=== PATIENT | female | born 1940 | race Caucasian/White ===

== ENCOUNTER 2016-09-29 14:42 | Inpatient (IN) | payer MEDICARE, OTHER, SELFPAY ==
[~2016-09-29 14:42] MED LIST: ASPIRIN (CHEWABLE) 81 MG TAB PO SCH
[2016-09-29] MEDS ORDERED: NS 1,000 ML IV ONE (15:10)
[2016-09-29] MEDS ORDERED: SODIUM CHLORIDE 0.9% 10 ML FLUSH FLUSH PRN (15:10)
[2016-09-29] MEDS ORDERED: ASPIRIN 325 MG TAB PO ONE (15:13)
[2016-09-29] MEDS ORDERED: Enoxaparin 1 mg per kg per dose SQ ONE (15:13)
[2016-09-29] MEDS ORDERED: NITROGLYCERINE 2 % OINTMENT PACK TOP ONE (15:13)
[2016-09-29 15:28] LABS: AUTOMATED BASOPHIL 0.5 % (0-2); AUTOMATED EOSINOPHIL 0.6 % (0-5); AUTOMATED LYMPH 19.7 % (17-44); AUTOMATED MONOCYTE 6.4 % (3-10); AUTOMATED NEUTROPHIL 72.8 % (45-76); MPV 8.5 fL (7.4-10.4)
--- NOTE | 2016-09-29 15:32 | DIRPT ---
CLINICAL DATA: Chest pain for 1 day. Shortness of breath, tachycardia, and nausea. EXAM: PORTABLE CHEST 1 VIEW COMPARISON: 08/17/2016 FINDINGS: The cardiac silhouette remains mildly enlarged. Telemetry leads overlie the chest. No airspace consolidation, edema, pleural effusion, or pneumothorax is identified. No acute osseous abnormality is seen. IMPRESSION: No active disease. Electronically Signed By: Hrarison Yates M.D. On: 09/29/2016 15:30
[2016-09-29 15:39] LABS: BLOOD UREA NITROGEN 35 MG/DL (7-17); CALCIUM 10.6 MG/DL (8.4-10.2); CALCULATED OSMOLALITY 278 MOs/Kg (270-290); CHLORIDE 101 mEq/L (98-107); GLUCOSE 210 MG/DL (70-99); SODIUM LEVEL 137 mEq/L (137-146); TOTAL PROTEIN 7.2 G/DL (6.3-8.2)
--- NOTE | 2016-09-29 15:42 | EDPRACDOC ---
- General Information Stated Complaint: PALPITATIONS Time Seen by Provider: 09/29/16 15:09 Information Source: Patient Mode of Arrival: Ambulance Home Medications: Home Medications Alendronate Sodium [Fosamax] 70 mg PO TH 09/29/16 Aspirin (Enteric Coated) [Ecotrin] 81 mg PO DAILY 09/29/16 Atenolol 100 mg PO DAILY 09/29/16 Cholecalciferol (Vitamin D3) [Vitamin D3] 1,000 unit PO DAILY 09/29/16 Gabapentin 600 mg PO BID 09/29/16 HydrALAZINE (Cardiovascular) [Apresoline] 50 mg PO BID 09/29/16 Insulin Glargine [Lantus Pen] 100 units SQ DAILY 09/29/16 Levothyroxine Sodium [Synthroid] 100 mcg PO DAILY 09/29/16 Losartan Potassium 100 mg PO DAILY 09/29/16 Magnesium Oxide [Magnesium] 500 mg PO DAILY 09/29/16 [place]-3 Fatty Acids/Fish Oil [Fish Oil 1,[address]] 2 cap PO BID Simvastatin [Zocor] 80 mg PO QHS 09/29/16 Torsemide 20 mg PO BID 09/29/16 Allergies/Adverse Reactions: Allergies Allergy/AdvReac Type Severity Reaction Status Date / Time clopidogrel bisulfate Allergy Intermediate See Verified 07/02/14 14:21 [From Plavix] Comments OBI Inhibitors AdvReac Cough Verified 09/29/16 15:33 glimepiride AdvReac See Verified 09/29/16 15:33 Comments metformin AdvReac Diarrhea Verified 09/29/16 15:33 pioglitazone [From Actos] AdvReac See Verified 09/29/16 15:33 Comments - History of Present Illness Onset: 99 HPI: HERE WITH CP AND SHOB; DR. GRAHAM SENT PT HERE FOR ADMISSION. ALSO NOTED TACHYCARDIA IN HER OFFICE. MULTIPLE RISK FACTORS AND STENT IN 2005 AND 2009. CP ON AND OFF SINCE 99; CALLED CARDS AND COULD NOT SEE; WENT TO PMD. I SPOKE WITH DR. GRAHAM. SHE GAVE NTG AND HAD RELIEF. NO DECONGESTANTS OR CAFFEINE. Chest Pain Location: Reports: Substernal Pain Radiation: Reports: None Symptoms Occur: Reports: Gradually Cardiac Risk Factors: Reports: Hypertension, Diabetes Cardiac History of: Reports: Stent PE Risk Factors: Reports: None Medications within 24 Hours: Reports: None Prehospital Care: Reports: None Pain Severity: Mild Pain Worsens With: Reports: Exertion Pain Improves With: Reports: Rest Associated Signs and Symptoms: Reports: Palpitations ED Past Medical History - History Reviewed Yes Nurses notes reviewed and agree except as marked - Patient Medical History Cardiac History: Reports: Hypertension, Congestive Heart Failure, Cardiac Catheterization, Hypercholesterolemia Psychological History: Denies: Depression Systemic History: Denies: Cancer Surgical History: Reports: Cholecystectomy, Cardiac Catheterization - Social Medical History Smoking Status: Never smoker EDM Review of Systems - Review of Systems ROS Negative Except as Marked: Yes All systems reviewed and were negative except as marked - Physical Exam Constitutional: Alert (Awake), No apparent distress Oriented to: Time, Person, Place Last recorded Vital Signs: Last Vital Signs Temp 98.1 F 09/29/16 14:42 Pulse 116 09/29/16 15:15 Resp 20 09/29/16 15:15 BP 152/66 09/29/16 15:15 Pulse Ox 91 09/29/16 15:15 Oxygen Pulse Oxygen Saturation 91 O2 Device Room Air Oxygen Flow Rate Fraction of Inspired Oxygen ( FIO2) - HEENT Head: Normal ( normocephalic) Eye Exam: Normal (PERRL, EOMI, Sclera white) Oropharynx: Normal (Pharynx:Moist without exudate,Gums-no swelling) ENT EAC: Normal TMJ: Normal Nose: No Symptoms Reported (septum midline) Neck: Normal (FROM, trachea at midline) - Respiratory/Cardiovascular Respiratory: Normal - CTA (BBS clear to auscultation without adventitious sounds ) Cardiovascular: Tachycardia - GI Auscultation: Normal (NABS) Palpation: Normal (Soft,No rebound or guarding, non distended) Tenderness: Non tender Matos's Sign: Negative - Musculoskeletal Back: Normal (Non-Tender) Extremities: Normal (Normal tone, Pulses 2+ No cyanosis or edema, FROM) - Integumentary Skin: Normal, Warm, Dry Lymphatics: Normal (no adenopathy) - Neurologic Memory Impaired: Normal Motor Function: Normal (Normal tone, Pulses 2+ No cyanosis or edema, FROM) Cranial Nerve: Normal (CN II-X11 intact sensation, strength 5/5) Cerebellar: Normal Mood Description: Normal Perception: Normal - Action Patient received Aspirin within last 24 hours?: Yes ASA given in the ED: Yes Patient received Beta Sandra within last 24hrs: Yes - Results 09/29/16 14:55 09/29/16 14:55 WBC 9.9 xk/uL (3.8-10.8) 09/29/16 14:55 RBC 4.62 xM/uL (4.20-5.40) 09/29/16 14:55 Hgb 13.9 g/dL (12.0-16.0) 09/29/16 14:55 Hct 40.6 % (36-47) 09/29/16 14:55 MCV 88 fL (81-99) 09/29/16 14:55 MCH 30.0 pg (27-32) 09/29/16 14:55 MCHC 34.1 g/dl (33-36) 09/29/16 14:55 RDW 13.5 % (11.5-14.5) 09/29/16 14:55 Plt Count 284 xk/uL (130-400) 09/29/16 14:55 MPV 8.5 fL (7.4-10.4) 09/29/16 14:55 Neut % (Auto) 72.8 % (45-76) 09/29/16 14:55 Lymph % (Auto) 19.7 % (17-44) 09/29/16 14:55 [place] % (Auto) 6.4 % (3-10) 09/29/16 14:55 Eos % (Auto) 0.6 % (0-5) 09/29/16 14:55 Baso % (Auto) 0.5 % (0-2) 09/29/16 14:55 Absolute Neuts (auto) 7.13 xk/uL (1.7-8.2) 09/29/16 14:55 Absolute Lymphs (auto) 1.88 xk/uL (0.65-4.75) 09/29/16 14:55 Lab Results 09/29/16 14:55 WBC 9.9 RBC 4.62 Hgb 13.9 Hct 40.6 MCV 88 MCH 30.0 MCHC 34.1 RDW 13.5 Plt Count 284 MPV 8.5 Neut % (Auto) 72.8 Lymph % (Auto) 19.7 [place] % (Auto) 6.4 Eos % (Auto) 0.6 Baso % (Auto) 0.5 Absolute Neuts (auto) 7.13 Absolute Lymphs (auto) 1.88 Laboratory Results - last 24 hr 09/29/16 14:55 WBC 9.9 RBC 4.62 Hgb 13.9 Hct 40.6 MCV 88 MCH 30.0 MCHC 34.1 RDW 13.5 Plt Count 284 MPV 8.5 Neut % (Auto) 72.8 Lymph % (Auto) 19.7 [place] % (Auto) 6.4 Eos % (Auto) 0.6 Baso % (Auto) 0.5 Absolute Neuts (auto) 7.13 Absolute Lymphs (auto) 1.88 Laboratory Results 09/29/16 14:55 - EKG EKG #1 [place]: Normal Rhythm: ST Block: None Hypertrophy: None ST: Normal - Departure Yes I personally saw and evaluated the patient. Disposition: Admit IP To This Hospital Condition: Good Final Diagnosis: ANGINA Referrals: Kristin Graham MD [Primary Care Provider] - One Week Decision to Admit Time: 16:46 (ROCHELLE) Decision to admit date: 09/29/16 Decision to admit: from ED
[2016-09-29] MEDS ORDERED: METOPROLOL TARTRATE 25 MG TAB PO ONE (15:45)
[2016-09-29 15:52] LABS: PARTIAL THROMB. TIME 23.9 SEC (22-35); PT-INR 1.1
[2016-09-29] MEDS ORDERED: ENOXAPARIN 100 MG PFS SQ ONE (16:00)
[2016-09-29] MEDS ORDERED: Pharmacy Review for Metformin - IV Contrast Given SCH (16:00)
--- NOTE | 2016-09-29 16:33 | DIRPT ---
CLINICAL DATA: Tachycardia. Chest pain. Nausea. EXAM: CT ANGIOGRAPHY CHEST WITH CONTRAST TECHNIQUE: Multidetector CT imaging of the chest was performed using the standard protocol during bolus administration of intravenous contrast. Multiplanar CT image reconstructions and MIPs were obtained to evaluate the vascular anatomy. CONTRAST: 80 cc Isovue 370 COMPARISON: 09/29/2016 FINDINGS: Body habitus and motion artifact mildly reduced diagnostic sensitivity. Mediastinum/Nodes: No filling defect is identified in the pulmonary arterial tree to suggest pulmonary embolus. No acute aortic findings. Coronary artery atherosclerosis. Mild cardiomegaly. Borderline distal esophageal wall thickening. No pathologic thoracic adenopathy. Lungs/Pleura: Mild scarring or subsegmental atelectasis in the apical posterior segment left upper lobe. Upper abdomen: Peripancreatic lymph node upper normal size at 9 mm, image 101 series 3. No significant upper abdominal abnormality observed. Musculoskeletal: Thoracic spondylosis. Review of the MIP images confirms the above findings. IMPRESSION: 1. No embolus or acute aortic findings identified. 2. Coronary artery atherosclerosis with mild cardiomegaly. 3. Borderline distal esophageal wall thickening, potentially from mild esophagitis. 4. Thoracic spondylosis. Electronically Signed By: Diego Butler M.D. On: 09/29/2016 16:31
--- NOTE | 2016-09-29 16:48 | HISTPHYS ---
- Chief Complaint PATIENT SENT FROM DR. GODOY OFFICE FOR TACHYCARDIA AND CHEST PAIN. PATIENT STATES INTERMITTENT TACHY. ONSET 89 THIS AM WHILE SLEEPING AND REOCCURRED WHILE CLEANING HOUSE. PATIENT C/O "THROBBING" SENSATION IN CHEST, NAUSEA WITHOUT VOMITING AND DYSPNEA - History of Present Illness HERE WITH CP AND SHOB; DR. GODOY SENT PT HERE FOR ADMISSION. ALSO NOTED TACHYCARDIA IN HER OFFICE. MULTIPLE RISK FACTORS AND STENT IN 2005 AND 2009. CP ON AND OFF SINCE 99; CALLED CARDS AND COULD NOT SEE; WENT TO PMD. Dr. Pierson SPOKE WITH DR. GODOY. SHE GAVE NTG AND HAD RELIEF. NO DECONGESTANTS OR CAFFEINE. Chest Pain Location: Reports: Substernal Pain Radiation: Reports: None Symptoms Occur: Reports: Gradually Cardiac Risk Factors: Reports: Hypertension, Diabetes Cardiac History of: Reports: Stent PE Risk Factors: Reports: None Medications within 24 Hours: Reports: None Prehospital Care: Reports: None Pain Severity: Mild Pain Worsens With: Reports: Exertion Pain Improves With: Reports: Rest Associated Signs and Symptoms: Reports: Palpitations Patient has had 2 stents placed in 2005 and 1 stent placed in 2009. She also had some recent problems with low blood pressures at home she was checking her blood pressure on her 's machine. His was fine but hers ran low 3 or 4 time she said she just felt weak during that period. It got better on its own. Cardiac risk factors diabetes type 2, hypercholesterolemia, hypertension, negative smoker negative tobacco negative family history. - Medical History Cardiac History: Reports: Hypertension, Congestive Heart Failure, Cardiac Catheterization, Hypercholesterolemia Respiratory History: Reports: No Significant History GI/ History: Reports: No Significant History Systemic History: Reports: Diabetes. Denies: Cancer Psychological History: Denies: Depression - Surgical History Reports: Cholecystectomy, Cardiac Catheterization - Medictions/Allergies Allergies clopidogrel bisulfate [From Plavix] Allergy (Intermediate, Verified 07/02/14 14: 21) See Comments SWELLING IN EARS, EYES AND MOUTH OBI Inhibitors Adverse Reaction (Verified 09/29/16 15:33) Cough glimepiride Adverse Reaction (Verified 09/29/16 15:33) See Comments HYPOGLYCEMIA metformin Adverse Reaction (Verified 09/29/16 15:33) Diarrhea pioglitazone [From Actos] Adverse Reaction (Verified 09/29/16 15:33) See Comments WEIGHT GAIN Current Medication List: Reviewed Home Medications Alendronate Sodium [Fosamax] 70 mg PO TH 09/29/16 Aspirin (Enteric Coated) [Ecotrin] 81 mg PO DAILY 09/29/16 Atenolol 100 mg PO DAILY 09/29/16 Cholecalciferol (Vitamin D3) [Vitamin D3] 1,000 unit PO DAILY 09/29/16 Gabapentin 600 mg PO BID 09/29/16 HydrALAZINE (Cardiovascular) [Apresoline] 50 mg PO BID 09/29/16 Insulin Glargine [Lantus Pen] 100 units SQ DAILY 09/29/16 Levothyroxine Sodium [Synthroid] 100 mcg PO DAILY 09/29/16 Losartan Potassium 100 mg PO DAILY 09/29/16 Magnesium Oxide [Magnesium] 500 mg PO DAILY 09/29/16 [place]-3 Fatty Acids/Fish Oil [Fish Oil 1,[address]] 2 cap PO BID Simvastatin [Zocor] 80 mg PO QHS 09/29/16 Torsemide 20 mg PO BID 09/29/16 - Family History Reports: Diabetes - Social History Travel Outside of [place] in the Last 3 Months?: No Lives: with Spouse Smoking Status: Never smoker Social History: Denies: Alcohol Use - Review of Systems Constitutional: No Symptoms Reported (No Fever, chills, wt loss/gain, diaphoresis,fatigue/malaise.) Eyes: No Symptoms Reported (No blurry vision, visual changes, eye pain, or eye redness.) Ears: No Symptoms Reported (No ear pain or discharge) Throat/Neck: No Symptoms Reported (No throat pain or swelling.No oropharyngeal lesions or erythema.) Respiratory: No Symptoms Reported (No cough, wheezing, or shortness of breath.) Cardiovascular: Chest Pain, Palpitations Gastrointestinal: Other (Significant amount of belching recently) Genitourinary: No Symptoms Reported (No dysuria or hematuria.) Neurological: No Symptoms Reported (No headache, dizziness, seizures, or focal weakness.) Integumentary: No Symptoms Reported (no rashes or lesions) Allergic/Immunologic: No Symptoms Reported (no rashes or lesions) Hematologic: No Symptoms Reported (No chronic anemia, bleeding, or easy bruising.), Other (Lymphatics- no lymph node swelling or pain.) Endocrine: No Symptoms Reported (No thyroid issues, polyuria, or polydipsia.) Psychiatric: No Symptoms Reported (Fully oriented, with normal and appropriate affect.) - Physical Exam Vital Signs: Initial Vitals Temperature 98.1 F 09/29/16 14:42 Pulse Rate 120 H 09/29/16 14:42 Respiratory Rate 20 09/29/16 14:42 Blood Pressure 167/73 09/29/16 14:42 Pulse Oxygen Saturation 93 09/29/16 14:42 Constitutional: Alert (Awake, Fully oriented. Normal and appropriate affect.Well appearing. Well nourished.), No apparent distress Oriented to: Time, Person, Place - HEENT Head: Normal (normocephalic, atraumatic.), Other (No cervical lymphadenopathy. No supraclavicular lymphadenopathy. Neck: No palpable mass, supple , trachea midline.) Eye: Normal (pupils equal, reactive to light, and round; EOMI, Sclera white) Oropharynx: Normal (Pharynx: Moist without exudate,Gums-no swelling, No oropharyngeal lesions or erythema, Mucous membranes are dry.) Nose: No Symptoms Reported (septum midline, Nares patent, without discharge or bleeding.) Respiratory: Normal - CTA (Clear to auscultation bilaterally. No wheezing, rales , rhonchi. Chest wall movements are symmetric. No use of accessory muscles to breathe.) Cardiovascular: Normal (RRR , Normal S1, S2. No murmurs, rubs, or gallops. PMI non-displaced. Carotids: no carotid bruits. No bradycardia or tachycardia. DP pulses 2+ bilaterally.) - GI Auscultation: Normal (normal active sounds) Palpation: Normal (Soft,non distended,nontender. No hepatosplenomegaly.) Tenderness: Non tender (No rebound or guarding) Matos's Sign: Negative - Musculoskeletal Back: Normal (Non-Tender) Extremities: Normal (Normal tone, DP pulses 2+ bilaterally, No cyanosis or edema bilaterally, FROM bilaterally.) - Integumentary Skin: Normal (Clean, dry, and intact. No rashes. No lesions.) Lymphatics: Normal (No cervical lymphadenopathy. No supraclavicular lymphadenopathy.) - Neurologic Memory Impaired: Normal Motor Function: Normal (Motor 5/5 throughout.Normal tone, Pulses 2+ No cyanosis or edema, FROM) Cranial Nerve: Normal (CN II-XII intact sensation, strength 5/5) Cerebellar: Normal (Babinski: toes downgoing bilaterally. Intact Finger to nose. Sensory grossly intact to light touch. Intact rapid alternating movements bilaterally. No pronator drift.) Mood Description: Normal (Fully oriented. Normal and appropriate affect.) Perception: Normal (Normal and appropriate affect.) - Focused CV Perfusion Exam Vital Signs: Last Vital Signs Temp 98.1 F 09/29/16 14:42 Pulse 112 09/29/16 16:32 Resp 18 09/29/16 16:32 BP 149/64 09/29/16 16:32 Pulse Ox 93 09/29/16 16:32 - Lab Results Laboratory Results - last 24 hr 09/29/16 09/29/16 09/29/16 14:55 14:55 14:55 WBC 9.9 RBC 4.62 Hgb 13.9 Hct 40.6 MCV 88 MCH 30.0 MCHC 34.1 RDW 13.5 Plt Count 284 MPV 8.5 Neut % (Auto) 72.8 Lymph % (Auto) 19.7 [place] % (Auto) 6.4 Eos % (Auto) 0.6 Baso % (Auto) 0.5 Absolute Neuts (auto) 7.13 Absolute Lymphs (auto) 1.88 PT 10.8 INR 1.1 APTT 23.9 Sodium 137 Potassium 4.2 Chloride 101 Carbon Dioxide 26 Anion Gap 14 BUN 35 H Creatinine 1.10 H Estimated GFR (MDRD) 49 L Glucose 210 H Calculated Osmolality 278 Calcium 10.6 H Total Bilirubin 0.6 AST 34 ALT 40 Alkaline Phosphatase 90 Troponin I 0.08 [id number] Pept 401 Total Protein 7.2 Albumin 4.0 - Diagnostic Findings CT ANGIOGRAPHY CHEST WITH CONTRAST TECHNIQUE: Multidetector CT imaging of the chest was performed using the standard protocol during bolus administration of intravenous contrast. Multiplanar CT image reconstructions and MIPs were obtained to evaluate the vascular anatomy. CONTRAST: 80 cc Isovue 370 COMPARISON: 09/29/2016 FINDINGS: Body habitus and motion artifact mildly reduced diagnostic sensitivity. Mediastinum/Nodes: No filling defect is identified in the pulmonary arterial tree to suggest pulmonary embolus. No acute aortic findings. Coronary artery atherosclerosis. Mild cardiomegaly. Borderline distal esophageal wall thickening. No pathologic thoracic adenopathy. Lungs/Pleura: Mild scarring or subsegmental atelectasis in the apical posterior segment left upper lobe. Upper abdomen: Peripancreatic lymph node upper normal size at 9 mm, image 101 series 3. No significant upper abdominal abnormality observed. Musculoskeletal: Thoracic spondylosis. Review of the MIP images confirms the above findings. IMPRESSION: 1. No embolus or acute aortic findings identified. 2. Coronary artery atherosclerosis with mild cardiomegaly. 3. Borderline distal esophageal wall thickening, potentially from mild esophagitis. 4. Thoracic spondylosis. Electronically Signed By: Diego Butler M.D. On: 09/29/2016 16:31 - EKG EKG #1 [place]: Normal Rhythm: ST Block: None Hypertrophy: None ST: Normal Personally viewed by me. - Assessment (1) Chest pain R07.9 - CHEST PAIN, UNSPECIFIED Acute Present on Admission: Yes Qualifiers: Chest pain type: chest pain due to myocardial ischemia Ischemic chest pain type: unstable angina pectoris Qualified Code(s): I20.0 - Unstable angina Patient will be observed in the chest Pain Center. Will check serial enzymes and EKGs. If negative will proceed to Lexiscan Cardiolite stress testing in a.m. patient cannot do exercise stress testing due to thoracic spondylosis (2) Palpitations R00.2 - PALPITATIONS Acute Present on Admission: Yes Patient states that her previous cardiac episodes did not involve palpitations. Her heart rate is quite elevated this time. (3) Coronary artery disease I25.10 - ATHSCL HEART DISEASE OF [place] CORONARY ARTERY W/O ANG PCTRS Acute Present on Admission: Yes Qualifiers: Coronary Disease-Associated Artery/Lesion type: [place] artery [place] vs. transplanted heart: [place] heart Associated angina: without angina Qualified Code(s): I25.10 - Atherosclerotic heart disease of [place] coronary artery without angina pectoris Patient without history of previous unstable angina. At this point she is having significant pain and with a known history of coronary disease will rule out myocardial infarction and check stress test. (4) Type 2 diabetes mellitus E11.9 - TYPE 2 DIABETES MELLITUS WITHOUT COMPLICATIONS Acute Present on Admission: Yes Qualifiers: Diabetes mellitus complication status: with circulatory complication Diabetes mellitus complication detail: with other circulatory complications Diabetic retinopathy severity: D Proliferative retinopathy type: P Diabetes mellitus macular edema: D Diabetes mellitus skilled nursing insulin use: with skilled nursing use Laterality: L Chronic kidney disease stage: C Qualified Code(s): E11.59 - Type 2 diabetes mellitus with other circulatory complications; Z79.4 - intermediate (current) use of insulin Continue home medications. Start sliding scale insulin coverage. (5) Hypertension I10 - ESSENTIAL (PRIMARY) HYPERTENSION Acute Present on Admission: Yes Qualifiers: Hypertension type: essential hypertension Qualified Code(s): I10 - Essential (primary) hypertension Blood pressure fairly well controlled today continue home medications. (6) Hypercholesterolemia E78.00 - PURE HYPERCHOLESTEROLEMIA, UNSPECIFIED Acute Present on Admission: Yes Continue home medications. - Plan Observation, rule out [place], stress test. Cardiology has been consulted will see patient in a.m.. Case Care Discussed with: Patient, Family, Nursing Staff Total Time: 55 minutes Critical Care: No Couseling Time (>50% in counseling/coordination): No
[2016-09-29] MEDS ORDERED: NITROGLYCERINE 0.4 MG TAB SL PRN (17:15)
[2016-09-29] MEDS ORDERED: Pharmacy Order Set Alert SCH (18:00)
[2016-09-29] MEDS ORDERED: GLARGINE INSULIN (LANTUS) 100 UNITS/ML PEN SQ SCH (18:00)
[2016-09-29 18:57] VITALS: BMI 37.6
[2016-09-29] MEDS ORDERED: SIMVASTATIN 80 MG TAB PO SCH (21:00)
[2016-09-29] MEDS ORDERED: OMEGA PO SCH (21:00)
[2016-09-29] MEDS ORDERED: [UNRECOGNIZED DRUG - OTHER] PO SCH (21:00)
[2016-09-29] MEDS ORDERED: Non-Formulary Medication ITEM (Gabapentin [Gabapentin] 600 MG) PO SCH (21:00)
[2016-09-29] MEDS ORDERED: FATTY ACIDS PO SCH (21:00)
[2016-09-29] MEDS ORDERED: FISH OIL PO SCH (21:00)
[2016-09-29] MEDS: OMEGA-3-ACID ETHYL ESTERS 1000 MG CAP PO SCH (22:38)
[2016-09-29] MEDS: GABAPENTIN 300 MG CAP PO SCH (22:38)
[2016-09-29] MEDS ORDERED: Vaccine Screening Complete SCH (23:00)
[2016-09-30] MEDS ORDERED: MORPHINE 2 MG/ML INJECTION IV PRN (02:05)
[2016-09-30] MEDS ORDERED: Enoxaparin 1 mg per kg per dose SQ SCH (03:00)
[2016-09-30] MEDS ORDERED: ENOXAPARIN 100 MG PFS SQ SCH (04:00)
[2016-09-30 04:46] LABS: LDL (calc.) 57.2 MG/DL (<100); VLDL (calc.) 61.8 MG/DL (5-40)
[2016-09-30] MEDS ORDERED: LEVOTHYROXINE 100 MCG (0.1 MG) TAB PO SCH (06:00)
[2016-09-30] MEDS ORDERED: PANTOPRAZOLE 40 MG TAB PO SCH (06:00)
--- NOTE | 2016-09-30 07:48 | PCM.CARDCO ---
Consultation Date: 09/30/16 Requesting Physician: Guerita Chavez Parts Salesperson: Jesus Byers Consult Reason: Chest Pain - History of Present Illness Known to our group, history of CAD with PCI taxis stent to right coronary artery 02/11/2000 stents and PCI an exact got big Xience stent to her LAD in October 2010 other problems include hypertensive heart disease with heart failure chronic diastolic heart failure hyperlipidemia and type 2 diabetes. She had trouble sleeping and to go over the counter p.m. medicines with sedating antihistamine and INR heart racing in the high 120s. This made her quite apprehensive short of breath and vague chest discomfort. She did not take nitroglycerin. The chest pain was not severe but was substernal and was tightness. The symptoms waxed and waned was seen in Dr. Graham is office her heart rate was still high was referred to the emergency room. He has had no recurrent symptoms with her troponins become positive. I met with the patient the review the diagnosis of non ST elevation NE and advised in view of her known coronary disease and multiple previous PCI she would be best served with direct referral to coronary arteriography. Risk options and benefits were detailed will check her BMP because she received contrast in the ED out yesterday. She has no dye allergy no contraindication dual anti-platelet therapy and she is compliant patient. He has had no previous documented atrial arrhythmias but is at risk for atrial fibrillation with CAD hypertension heart failure and age. Chief Complaint: PATIENT SENT FROM DR. GRAHAM OFFICE FOR TACHYCARDIA AND CHEST PAIN. PATIENT STATES INTERMITTENT TACHY. ONSET 0100 THIS AM WHILE SLEEPING AND REOCCURRED WHILE CLEANING HOUSE. PATIENT C/O "THROBBING" SENSATION IN CHEST, NAUSEA WITHOUT VOMITING AND DYSPNEA - Past Medical and Surgical History Cardiac History: Reports: No Significant History, Hypertension, Congestive Heart Failure, Cardiac Catheterization, Hypercholesterolemia. Denies: Heart Attack Respiratory History: Reports: No Significant History. Denies: Pneumonia, Pulmonary Embolism GI/ History: Reports: No Significant History. Denies: Ulcer, Pancreatitis Systemic History: Reports: No Significant History, Diabetes, Hypothyroidism. Denies: Cancer Musculoskeletal History: Reports: No Significant History Psychological History: Reports: No Significant History. Denies: Depression, Alcoholism Neurological History: Reports: No Significant History Past Surgical History: Reports: Cholecystectomy, Cardiac Catheterization, Other (Carpal tunnel surgery and bilateral cataract removal). Denies: Hernia Surgery Allergies clopidogrel bisulfate [From Plavix] Allergy (Intermediate, Verified 07/02/14 14: 21) See Comments SWELLING IN EARS, EYES AND MOUTH OBI Inhibitors Adverse Reaction (Verified 09/29/16 15:33) Cough glimepiride Adverse Reaction (Verified 09/29/16 15:33) See Comments HYPOGLYCEMIA metformin Adverse Reaction (Verified 09/29/16 15:33) Diarrhea pioglitazone [From Actos] Adverse Reaction (Verified 09/29/16 15:33) See Comments WEIGHT GAIN Home Medications Alendronate Sodium [Fosamax] 70 mg PO TH 09/29/16 Aspirin (Enteric Coated) [Ecotrin] 162 mg PO DAILY 09/29/16 Atenolol 100 mg PO DAILY 09/29/16 Cholecalciferol (Vitamin D3) [Vitamin D3] 1,000 unit PO DAILY 09/29/16 Gabapentin 600 mg PO BID 09/29/16 Glimepiride [Amaryl] 4 mg PO BID 09/29/16 HydrALAZINE (Cardiovascular) [Apresoline] 50 mg PO BID 09/29/16 Insulin Glargine [Lantus Pen] 100 units SQ DAILY 09/29/16 Levothyroxine Sodium [Synthroid] 100 mcg PO DAILY 09/29/16 Losartan Potassium 100 mg PO DAILY 09/29/16 Magnesium Oxide [Magnesium] 500 mg PO DAILY 09/29/16 [place]-3 Fatty Acids/Fish Oil [Fish Oil 1,[address]] 2 cap PO BID Simvastatin [Zocor] 80 mg PO QHS 09/29/16 Torsemide 20 mg PO BID 09/29/16 - Social History Travel Outside of [place] in the Last 3 Months?: No Lives: with Spouse Smoking Status: Never smoker Social History: Denies: Alcohol Use - Family History Reports: No Significant History, Cancer, Cardiac Disorders (sister). Denies: Hypertension, Diabetes, Stroke - Review of Systems Constitutional: No Symptoms Reported (No Fever, chills, wt loss/gain, diaphoresis,fatigue/malaise.) - Respiratory Shortness of Breath - Cardiovascular Chest Pain, Palpitations - Psychiatric Anxiety - Physical Exam Constitutional: No apparent distress, Alert (Awake, Fully oriented. Normal and appropriate affect.Well appearing. Well nourished.), Other (She appears her age) Oriented to: Time, Person, Place Exam: Last Vital Signs Temp 98.1 F 09/30/16 04:25 Pulse 87 09/30/16 07:09 Resp 20 09/30/16 04:25 BP 138/63 09/30/16 04:25 Pulse Ox 94 09/30/16 04:25 Intake & Output 09/29/16 09/29/16 09/30/16 15:59 23:59 07:59 Intake Total 0 Balance 0 Patient's weight 219 lb 8 oz 219 lb - HEENT Head: Normal (No bruit neck vein distention or thyromegaly), Other (No cervical lymphadenopathy. No supraclavicular lymphadenopathy. Neck: No palpable mass, supple , trachea midline.) Eye: Normal (pupils equal, reactive to light, and round; EOMI, Sclera white) Oropharynx: Normal (Pharynx: Moist without exudate,Gums-no swelling, No oropharyngeal lesions or erythema, Mucous membranes are dry.) Nose: No Symptoms Reported (septum midline, Nares patent, without discharge or bleeding.) - Respiratory/Cardiovascular Respiratory: Normal - CTA (Clear to auscultation bilaterally. No wheezing, rales , rhonchi. Chest wall movements are symmetric. No use of accessory muscles to breathe.). negative: Rales, Rhonchi, Wheezes Cardiovascular: Normal. negative: Systolic murmur, Gallop/S3, Gallop/S4 - GI Auscultation: Normal (The abdomen is soft nondistended nontender) Palpation: Normal (Soft,non distended,nontender. No hepatosplenomegaly.) Tenderness: Non tender (No rebound or guarding) - Musculoskeletal Back: Normal (Non-Tender) Extremities: Normal (Normal tone, DP pulses 2+ bilaterally, No cyanosis or edema bilaterally, FROM bilaterally.), Femoral Pulse, Pedal Pulse, Radial Pulse. negative: Calf Tenderness, Clubbing, Cyanosis, Edema, Pedal Edema - Integumentary Skin: Normal (Clean, dry, and intact. No rashes. No lesions.), Warm, Hot. negative: Clammy, Diaphoretic, Pale, Petechiae Lymphatics: Normal (No cervical lymphadenopathy. No supraclavicular lymphadenopathy.) - Neurologic Memory Impaired: Normal Cerebellar: Normal (Babinski: toes downgoing bilaterally. Intact Finger to nose. Sensory grossly intact to light touch. Intact rapid alternating movements bilaterally. No pronator drift.) Mood Description: Normal (Fully oriented. Normal and appropriate affect.) Perception: Normal (Normal and appropriate affect.) - Lab Results Laboratory Tests 09/29/16 09/29/16 09/29/16 14:55 14:55 14:55 WBC 9.9 Hgb 13.9 Hct 40.6 Plt Count 284 INR 1.1 Creatinine 1.10 H Troponin I 0.08 LDL Cholesterol, Calc 09/29/16 09/30/16 09/30/16 17:27 00:40 03:55 WBC Hgb Hct Plt Count INR Creatinine Troponin I 0.21 0.70 H* LDL Cholesterol, Calc 57.2 09/30/16 09/30/16 03:55 06:10 WBC Hgb Hct Plt Count INR Creatinine Troponin I 0.68 H* 0.62 H* LDL Cholesterol, Calc Her serial EKGs initially showed sinus tachycardia best described as poor R- wave progression and no ischemic changes or evolution of infarct pattern. - Assessment/Plan (1) Non-ST elevated myocardial infarction (non-STEMI) I21.4 - NON-ST ELEVATION (NSTEMI) MYOCARDIAL INFARCTION Acute Present on Admission: Yes Comment: She presents the hospital with acute coronary syndrome non ST elevation NE in the setting of what clinically sounds like at tachyarrhythmia. I think she is best served by referral to coronary arteriography with her known CAD and multiple PCIs in the past. Renal function quickly assessed and then referred to heart catheterization left she has had a marked decrease in her GFR. She will continue her current treatment including heparin aspirin beta-rosendo and a statin. (2) Hypercholesterolemia E78.00 - PURE HYPERCHOLESTEROLEMIA, UNSPECIFIED Acute (3) Hypertension I10 - ESSENTIAL (PRIMARY) HYPERTENSION Chronic Present on Admission: Yes essential hypertension I10 - Essential (primary) hypertension Comment: Stable continue current treatment including ARB with CAD (4) Palpitations R00.2 - PALPITATIONS Acute Present on Admission: No Comment: Clinically it sounds as if she had atrial tachyarrhythmia precipitating acute coronary syndrome, would benefit from ambulatory monitoring as an outpatient after cardiac interventions and was instructed to avoid [id number]-[id number] pro arrhythmics. At this time I would not commit her to chronic anticoagulation. (5) Type 2 diabetes mellitus E11.9 - TYPE 2 DIABETES MELLITUS WITHOUT COMPLICATIONS Chronic Present on Admission: Yes with circulatory complication with other circulatory complications D P D with intermediate teacher use L C E11.59 - Type 2 diabetes mellitus with other circulatory complications; Z79.4 - predatory animal exterminator (current) use of insulin Comment: Stable continue current treatment
[2016-09-30] MEDS ORDERED: TORSEMIDE 20 MG TAB PO SCH (08:00)
[2016-09-30 08:37] LABS: BLOOD UREA NITROGEN 33 MG/DL (7-17); CALCIUM 9.6 MG/DL (8.4-10.2); CALCULATED OSMOLALITY 277 MOs/Kg (270-290); CHLORIDE 104 mEq/L (98-107); GLUCOSE 132 MG/DL (70-99); SODIUM LEVEL 139 mEq/L (137-146)
[2016-09-30] MEDS ORDERED: Non-Formulary Medication ITEM (Losartan Potassium [Losartan Potassium] 100 MG) PO SCH (09:00)
[2016-09-30] MEDS ORDERED: ATENOLOL 50 MG TAB PO SCH (09:00)
[2016-09-30] MEDS ORDERED: ATENOLOL 100 MG PO SCH (09:00)
[2016-09-30] MEDS ORDERED: Non-Formulary Medication ITEM (Cholecalciferol (Vitamin D3) [Vitamin D3] 1,000 UNIT) PO SCH (09:00)
[2016-09-30] MEDS ORDERED: GLARGINE INSULIN (LANTUS) 100 UNITS/ML PEN SQ SCH (09:00)
[2016-09-30] MEDS ORDERED: LOSARTAN POTASSIUM 50 MG TAB PO SCH (09:00)
[2016-09-30] MEDS ORDERED: MAGNESIUM OXIDE 400 MG TAB PO SCH (09:00)
[2016-09-30] MEDS ORDERED: MAGNESIUM OXIDE 500 MG PO SCH (09:00)
[2016-09-30] MEDS: OMEGA-3-ACID ETHYL ESTERS 1000 MG CAP PO SCH (09:01)
[2016-09-30] MEDS: GABAPENTIN 300 MG CAP PO SCH (09:01)
[2016-09-30] MEDS ORDERED: CHOLECALCIFEROL 1000 UNITS TAB PO SCH (12:00)
[2016-09-30 12:57] VITALS: BP 152/72; PULSE 72; TEMP 98.1
--- NOTE | 2016-09-30 13:42 | PCM.DCS92 ---
- Final/Secondary Discharge Diagnosis (1) Chest pain Acute R07.9 - CHEST PAIN, UNSPECIFIED Present on Admission: Yes chest pain due to myocardial ischemia unstable angina pectoris I20.0 - Unstable angina Comment: Patient will be observed in the chest Pain Center. Will check serial enzymes and EKGs. If negative will proceed to Lexiscan Cardiolite stress testing in a.m. patient cannot do exercise stress testing due to thoracic spondylosis (2) Palpitations Acute R00.2 - PALPITATIONS Present on Admission: No Comment: Patient states that her previous cardiac episodes did not involve palpitations. Her heart rate is quite elevated this time. (3) Coronary artery disease Acute I25.10 - ATHSCL HEART DISEASE OF [place] CORONARY ARTERY W/O ANG PCTRS Present on Admission: Yes [place]' artery [place] heart without angina I25.10 - Atherosclerotic heart disease of [place] coronary artery without angina pectoris Comment: Patient without history of previous unstable angina. At this point she is having significant pain and with a known history of coronary disease will rule out myocardial infarction and check stress test. (4) Type 2 diabetes mellitus Chronic E11.9 - TYPE 2 DIABETES MELLITUS WITHOUT COMPLICATIONS Present on Admission: Yes with circulatory complication with other circulatory complications D P D with terminologist use L C E11.59 - Type 2 diabetes mellitus with other circulatory complications; Z79.4 - long-term (current) use of insulin Comment: Continue home medications. Start sliding scale insulin coverage. (5) Hypertension Chronic I10 - ESSENTIAL (PRIMARY) HYPERTENSION Present on Admission: Yes essential hypertension I10 - Essential (primary) hypertension Comment: Blood pressure fairly well controlled today continue home medications. (6) Hypercholesterolemia Acute E78.00 - PURE HYPERCHOLESTEROLEMIA, UNSPECIFIED Present on Admission: Yes Comment: Continue home medications. Discharge Disposition: Trans. to Other Hospital Discharge Condition: Good Cognitive Discharge Status: Unimpaired Fuctional Discharge Status: Independent Physician Follow up/Referrals: Kristin Graham MD [Primary Care Provider] - One Week Home Medications / New Prescriptions: No Action Simvastatin [Zocor] 80 mg PO QHS [place]-3 Fatty Acids/Fish Oil [Fish Oil 1,[address]] 2 cap PO BID Losartan Potassium 100 mg PO DAILY Levothyroxine Sodium [Synthroid] 100 mcg PO DAILY HydrALAZINE (Cardiovascular) [Apresoline] 50 mg PO BID Atenolol 100 mg PO DAILY Torsemide 20 mg PO BID Magnesium Oxide [Magnesium] 500 mg PO DAILY Gabapentin 600 mg PO BID Cholecalciferol (Vitamin D3) [Vitamin D3] 1,000 unit PO DAILY Insulin Glargine [Lantus Pen] 100 units SQ DAILY Aspirin (Enteric Coated) [Ecotrin] 162 mg PO DAILY Alendronate Sodium [Fosamax] 70 mg PO TH Glimepiride [Amaryl] 4 mg PO BID O2 Device: Room Air Diet at Discharge: Cardiac, Heart Healthy, Low Salt, 1800 Calorie Activity: No Restrictions Call Office For: Worsening Symptoms, Fever over 100.5, Pain Uncontrolled By Meds - DC Summary Notes HPI/Notes: Known to our group, history of CAD with PCI taxis stent to right coronary artery 02/11/2000 stents and PCI an exact got big Xience stent to her LAD in October 2010 other problems include hypertensive heart disease with heart failure chronic diastolic heart failure hyperlipidemia and type 2 diabetes. She had trouble sleeping and to go over the counter p.m. medicines with sedating antihistamine and INR heart racing in the high 120s. This made her quite apprehensive short of breath and vague chest discomfort. She did not take nitroglycerin. The chest pain was not severe but was substernal and was tightness. The symptoms waxed and waned was seen in Dr. Graham is office her heart rate was still high was referred to the emergency room. He has had no recurrent symptoms with her troponins become positive. I met with the patient the review the diagnosis of non ST elevation [place] and advised in view of her known coronary disease and multiple previous PCI she would be best served with direct referral to coronary arteriography. Risk options and benefits were detailed will check her BMP because she received contrast in the ED out yesterday. She has no dye allergy no contraindication dual anti-platelet therapy and she is compliant patient. He has had no previous documented atrial arrhythmias but is at risk for atrial fibrillation with CAD hypertension heart failure and age. Hospital Course Note:: Discharge summary on patient named DANIEL MARSH admitted to [facility] on 09/30/16 by Guerita Chavez MD. Date of discharge is []. 76-year-old female with known coronary disease presented to the emergency department with chest pains. She was admitted into the hospital and ruled in positive troponins. Given her history she was seen in consultation by Dr. Jose Carlos Dick. His cardiology consult reads: "She presents the hospital with acute coronary syndrome non ST elevation TX in the setting of what clinically sounds like at tachyarrhythmia. I think she is best served by referral to coronary arteriography with her known CAD and multiple PCIs in the past. Renal function quickly assessed and then referred to heart catheterization left she has had a marked decrease in her GFR. She will continue her current treatment including heparin aspirin beta-sandra and a statin." Therefore patient will be transferred to [facility] for cardiac catheterization. She has reached maximum benefit at our facility. She is stable for transfer. Total Time: 45 min - Transfer to Other Facility Patient Accepted to: [facility] Accepting Physician: SMITH LEVINE WITH [facility] Facility Dept.: [facility] Acute Coronary Syndrome DC - Education Provide the following patient education: Cardiac Prudent Diet (Restricted Salt Intake) - Discharge Medications Beta Sandra Ordered: Home Medication Continued at Discharge Aspirin Ordered (for AFib Consider Oral Anticoagulant): Home Medication Continued at Discharge OBI/ARB Ordered (Patients with EF<40% use OBI INHIBITORS &/or ARBs): Home Medication Continued at Discharge - Physical Exam Vital Signs: Last Vital Signs Temp 98.1 F 09/30/16 12:50 Pulse 72 09/30/16 12:50 Resp 18 09/30/16 12:50 BP 152/72 09/30/16 12:50 Pulse Ox 91 09/30/16 12:50 Oxygen Pulse Oxygen Saturation 91 O2 Device Oxygen Flow Rate Fraction of Inspired Oxygen ( FIO2) Constitutional: No apparent distress, Alert (Awake, Fully oriented. Normal and appropriate affect.Well appearing. Well nourished.), Other (She appears her age) Oriented to: Time, Person, Place - HEENT Head: Normal (No bruit neck vein distention or thyromegaly), Other (No cervical lymphadenopathy. No supraclavicular lymphadenopathy. Neck: No palpable mass, supple , trachea midline.) Eye: Normal (pupils equal, reactive to light, and round; EOMI, Sclera white) Oropharynx: Normal (Pharynx: Moist without exudate,Gums-no swelling, No oropharyngeal lesions or erythema, Mucous membranes are dry.) Nose: No Symptoms Reported (septum midline, Nares patent, without discharge or bleeding.) - Respiratory/Cardiovascular Respiratory: Normal - CTA (Clear to auscultation bilaterally. No wheezing, rales , rhonchi. Chest wall movements are symmetric. No use of accessory muscles to breathe.). negative: Rales, Rhonchi, Wheezes Cardiovascular: Normal. negative: Systolic murmur, Gallop/S3, Gallop/S4 - GI Auscultation: Normal (The abdomen is soft nondistended nontender) Palpation: Normal (Soft,non distended,nontender. No hepatosplenomegaly.) Tenderness: Non tender (No rebound or guarding) - Musculoskeletal Back: Normal (Non-Tender) Extremities: Normal (Normal tone, DP pulses 2+ bilaterally, No cyanosis or edema bilaterally, FROM bilaterally.), Femoral Pulse, Pedal Pulse, Radial Pulse. negative: Calf Tenderness, Clubbing, Cyanosis, Edema, Pedal Edema - Integumentary Skin: Normal (Clean, dry, and intact. No rashes. No lesions.), Warm, Hot. negative: Clammy, Diaphoretic, Pale, Petechiae Lymphatics: Normal (No cervical lymphadenopathy. No supraclavicular lymphadenopathy.) - Neurologic Memory Impaired: Normal Cerebellar: Normal (Babinski: toes downgoing bilaterally. Intact Finger to nose. Sensory grossly intact to light touch. Intact rapid alternating movements bilaterally. No pronator drift.) Mood Description: Normal (Fully oriented. Normal and appropriate affect.) Perception: Normal (Normal and appropriate affect.) - Other Exam Other Exam Findings: Laboratory Tests 09/29/16 09/29/16 09/29/16 14:55 14:55 14:55 WBC 9.9 RBC 4.62 Hgb 13.9 Hct 40.6 MCV 88 MCH 30.0 MCHC 34.1 RDW 13.5 Plt Count 284 MPV 8.5 Neut % (Auto) 72.8 Lymph % (Auto) 19.7 Garrett % (Auto) 6.4 Eos % (Auto) 0.6 Baso % (Auto) 0.5 Absolute Neuts (auto) 7.13 Absolute Lymphs (auto) 1.88 PT 10.8 INR 1.1 APTT 23.9 Sodium 137 Potassium 4.2 Chloride 101 Carbon Dioxide 26 Anion Gap 14 BUN 35 H Creatinine 1.10 H Estimated GFR (MDRD) 49 L Glucose 210 H POC Capillary Glucose Calculated Osmolality 278 Calcium 10.6 H Total Bilirubin 0.6 AST 34 ALT 40 Alkaline Phosphatase 90 Troponin I 0.08 Sbh-S-Kvlyhanpsgp Pept 401 Total Protein 7.2 Albumin 4.0 Triglycerides Cholesterol LDL Cholesterol, Calc VLDL Cholesterol, Calc HDL Cholesterol Cholesterol/HDL Ratio 09/29/16 09/29/16 09/30/16 17:27 21:53 00:40 WBC RBC Hgb Hct MCV MCH MCHC RDW Plt Count MPV Neut % (Auto) Lymph % (Auto) Garrett % (Auto) Eos % (Auto) Baso % (Auto) Absolute Neuts (auto) Absolute Lymphs (auto) PT INR APTT Sodium Potassium Chloride Carbon Dioxide Anion Gap BUN Creatinine Estimated GFR (MDRD) Glucose POC Capillary Glucose 159 H Calculated Osmolality Calcium Total Bilirubin AST ALT Alkaline Phosphatase Troponin I 0.21 0.70 H* Edo-P-Kmonmvonxft Pept Total Protein Albumin Triglycerides Cholesterol LDL Cholesterol, Calc VLDL Cholesterol, Calc HDL Cholesterol Cholesterol/HDL Ratio 09/30/16 09/30/16 09/30/16 03:55 03:55 05:29 WBC RBC Hgb Hct MCV MCH MCHC RDW Plt Count MPV Neut % (Auto) Lymph % (Auto) Garrett % (Auto) Eos % (Auto) Baso % (Auto) Absolute Neuts (auto) Absolute Lymphs (auto) PT INR APTT Sodium Potassium Chloride Carbon Dioxide Anion Gap BUN Creatinine Estimated GFR (MDRD) Glucose 114 H POC Capillary Glucose 117 H Calculated Osmolality Calcium Total Bilirubin AST ALT Alkaline Phosphatase Troponin I 0.68 H* Wwy-P-Siovklrxthi Pept Total Protein Albumin Triglycerides 309 H Cholesterol 156 LDL Cholesterol, Calc 57.2 VLDL Cholesterol, Calc 61.8 H HDL Cholesterol 37.0 L Cholesterol/HDL Ratio 4.2 09/30/16 09/30/16 09/30/16 06:10 07:55 07:55 WBC RBC Hgb Hct MCV MCH MCHC RDW Plt Count MPV Neut % (Auto) Lymph % (Auto) Garrett % (Auto) Eos % (Auto) Baso % (Auto) Absolute Neuts (auto) Absolute Lymphs (auto) PT INR APTT Sodium 139 Potassium 4.0 Chloride 104 Carbon Dioxide 24 Anion Gap 15 BUN 33 H Creatinine 1.00 Estimated GFR (MDRD) 54 L Glucose 132 H POC Capillary Glucose Calculated Osmolality 277 Calcium 9.6 Total Bilirubin AST ALT Alkaline Phosphatase Troponin I 0.62 H* 0.66 H* Vln-B-Mkiwxobtred Pept Total Protein Albumin Triglycerides Cholesterol LDL Cholesterol, Calc VLDL Cholesterol, Calc HDL Cholesterol Cholesterol/HDL Ratio 09/30/16 10:17 WBC RBC Hgb Hct MCV MCH MCHC RDW Plt Count MPV Neut % (Auto) Lymph % (Auto) Garrett % (Auto) Eos % (Auto) Baso % (Auto) Absolute Neuts (auto) Absolute Lymphs (auto) PT INR APTT Sodium Potassium Chloride Carbon Dioxide Anion Gap BUN Creatinine Estimated GFR (MDRD) Glucose POC Capillary Glucose 168 H Calculated Osmolality Calcium Total Bilirubin AST ALT Alkaline Phosphatase Troponin I Flz-Q-Luopctoyvsv Pept Total Protein Albumin Triglycerides Cholesterol LDL Cholesterol, Calc VLDL Cholesterol, Calc HDL Cholesterol Cholesterol/HDL Ratio EXAM: CT ANGIOGRAPHY CHEST WITH CONTRAST TECHNIQUE: Multidetector CT imaging of the chest was performed using the standard protocol during bolus administration of intravenous contrast. Multiplanar CT image reconstructions and MIPs were obtained to evaluate the vascular anatomy. CONTRAST: 80 cc Isovue 370 COMPARISON: 09/29/2016 FINDINGS: Body habitus and motion artifact mildly reduced diagnostic sensitivity. Mediastinum/Nodes: No filling defect is identified in the pulmonary arterial tree to suggest pulmonary embolus. No acute aortic findings. Coronary artery atherosclerosis. Mild cardiomegaly. Borderline distal esophageal wall thickening. No pathologic thoracic adenopathy. Lungs/Pleura: Mild scarring or subsegmental atelectasis in the apical posterior segment left upper lobe. Upper abdomen: Peripancreatic lymph node upper normal size at 9 mm, image 101 series 3. No significant upper abdominal abnormality observed. Musculoskeletal: Thoracic spondylosis. Review of the MIP images confirms the above findings. IMPRESSION: 1. No embolus or acute aortic findings identified. 2. Coronary artery atherosclerosis with mild cardiomegaly. 3. Borderline distal esophageal wall thickening, potentially from mild esophagitis. 4. Thoracic spondylosis. Electronically Signed By: Diego Butler M.D. On: 09/29/2016 16:31 EXAM: PORTABLE CHEST 1 VIEW COMPARISON: 08/17/2016 FINDINGS: The cardiac silhouette remains mildly enlarged. Telemetry leads overlie the chest. No airspace consolidation, edema, pleural effusion, or pneumothorax is identified. No acute osseous abnormality is seen. IMPRESSION: No active disease. Electronically Signed By: Harrison Yates M.D. On: 09/29/2016 15:30
--- NOTE | 2016-09-30 16:13 | CAPUEKG ---
[place], [place] Test Date: 2016-09-30 Pat Name: DANIEL MARSH Department: Room: 430 Gender: Female [employer] Marker: AYSHA : Requested By: Order Number: Reading MD: Jesus Byers MD Measurements Intervals [place] Rate: 87 P: 45 OR: 172 QRS: 44 QRSD: 84 T: 40 QT: 364 QTc: 438 Interpretive Statements Normal sinus rhythm Low voltage QRS Cannot rule out Anterior infarct, age undetermined Abnormal ECG Electronically Signed On 09-30-16 16:12:46 EST by Jesus Byers MD <[id number] [id number]
[2016-09-30] MEDS ORDERED: ENOXAPARIN 40 MG/0.4 ML PFS SQ SCH (18:00)
== END 2016-09-30 13:00 | disposition short-term general hospital (02) | DRG 282 ==
LOC: ED 14:42 → PCU 17:44 → OBSVTOIN 09-30 08:40
PROVIDERS: ADMIT Hospitalist; ATTEND Hospitalist
DX: I21.4 Non-ST elevation (NSTEMI) myocardial infarction (principal); E11.59 Type 2 diabetes mellitus with other circulatory complications; I50.9 Heart failure, unspecified; R00.2 Palpitations; I25.10 Atherosclerotic heart disease of native coronary artery without angina pectoris; Z79.4 Long term (current) use of insulin; I10 Essential (primary) hypertension; E78.00 Pure hypercholesterolemia, unspecified; Z98.61 Coronary angioplasty status; Z88.8 Allergy status to other drugs, medicaments and biological substances; Z79.82 Long term (current) use of aspirin; Z79.899 Other long term (current) drug therapy
CPT/HCPCS: 36415; 71010; 71275; 78452; 80048; 80053; 80061; 82947; 82962; 83880; 84484; 85025; 85610; 85730; 93005; 96372; 99284; A9698; G0378; J1650; J3490